=== PATIENT | male | born 1980 | race Caucasian/White ===

== ENCOUNTER 2018-01-31 12:50 | Emergency (ER) | payer BC ==
[~2018-01-31] VITALS: Ht 175.3 cm; Wt 72.6 kg
[~2018-01-31 12:50] MED LIST: LAMO100T2 PO
--- NOTE | 2018-01-31 13:25 | NUR ---
Pt states last night that he had inversion of left ankle, c/o 6/10 pain when not walking, unable to bear weight, some slight swelling. distal pms intact but ROM limited by pain, cap refill < 2 sec. Pt denies CP, SOB, dizziness, n/v, no other complaints, no distress noted.
--- NOTE | 2018-01-31 14:34 | NUR ---
Patient discharged to home in stable conditon with family. Written and verbal after care instructions given. Patient verbalizes understanding of instructions.
== END 2018-01-31 14:34 | disposition home or self-care (01) ==
LOC: ER 12:50
DX: S82.892A Other fracture of left lower leg, initial encounter for closed fracture (principal); F17.210 Nicotine dependence, cigarettes, uncomplicated; Z79.899 Other long term (current) drug therapy; X50.9XXA Other and unspecified overexertion or strenuous movements or postures, initial encounter; Y93.89 Activity, other specified; Y92.89 Other specified places as the place of occurrence of the external cause; Y99.8 Other external cause status
CPT/HCPCS: 73610; A4663

== ENCOUNTER 2018-03-04 16:37 | Emergency (ER) | payer BC ==
[~2018-03-04] VITALS: Ht 170.2 cm; Wt 74.8 kg
--- NOTE | 2018-03-04 17:15 | NUR ---
Dr Zurita at the bedside for MSE.
[2018-03-04] MEDS ORDERED: ACETAMINOPHEN 325 MG TABLET PO ONE (17:30)
[2018-03-04] MEDS ORDERED: ACETAMINOPHEN ES 500 MG TABLET ONE (17:32)
[2018-03-04 18:44] VITALS: BP 121/60
== END 2018-03-04 18:45 | disposition home or self-care (01) ==
LOC: ER 16:37
DX: S50.02XA Contusion of left elbow, initial encounter (principal); F17.210 Nicotine dependence, cigarettes, uncomplicated; Z79.899 Other long term (current) drug therapy; V43.54XA Car driver injured in collision with van in traffic accident, initial encounter; Y93.89 Activity, other specified; Y92.410 Unspecified street and highway as the place of occurrence of the external cause; Y99.8 Other external cause status
CPT/HCPCS: 73080; A4663; A9150

== ENCOUNTER 2018-04-12 16:26 | Emergency (ER) | payer BC ==
[~2018-04-12] VITALS: Ht 170.2 cm; Wt 74.8 kg
--- NOTE | 2018-04-12 18:02 | NUR ---
mse completed, pt d/c'd home, aci/copy of ekg given to pt. pt ambulated w/o diff/took all belongings.
[2018-04-12 18:03] VITALS: BP 135/57
== END 2018-04-12 18:03 | disposition home or self-care (01) ==
LOC: ER 16:28
DX: R07.89 Other chest pain (principal); F17.210 Nicotine dependence, cigarettes, uncomplicated; Z79.899 Other long term (current) drug therapy
CPT/HCPCS: 36415; 70030-TC; 71045; 93005; A4663

== ENCOUNTER 2019-07-08 22:59 | Emergency (ER) | payer BC ==
--- NOTE | 2019-07-08 23:20 | NUR ---
Patient left without being seen by ER physician or triaged, not in waiting room.
== END 2019-07-08 23:22 | disposition left against medical advice (07) ==
LOC: ER 23:01
DX: Z53.21 Procedure and treatment not carried out due to patient leaving prior to being seen by health care provider (principal)

== ENCOUNTER 2019-07-09 | Emergency (ER) | payer BC | END 2019-07-09 00:10 | disposition left against medical advice (07) | LOC: ER 00:03 | DX: Z53.21 Procedure and treatment not carried out due to patient leaving prior to being seen by health care provider (principal) ==